=== PATIENT | male | born 1965 | race Two or more races ===

== ENCOUNTER 2020-11-10 07:55 | Emergency (ER) | payer OTHER ==
[~2020-11-10] VITALS: Ht 167.6 cm; Wt 77.1 kg
[2020-11-10 08:44] VITALS: BP 163/84
[2020-11-10] MEDS ORDERED: KETOROLAC TROMETH 30 MG/ML 1ML VIAL IV ONE (08:45)
== END 2020-11-10 09:44 | disposition home or self-care (01) ==
LOC: ER 07:55 → EDBD 07:55 → ER 09:44
DX: S42.022A Displaced fracture of shaft of left clavicle, initial encounter for closed fracture (principal); S16.1XXA Strain of muscle, fascia and tendon at neck level, initial encounter; S20.211A Contusion of right front wall of thorax, initial encounter; V43.52XA Car driver injured in collision with other type car in traffic accident, initial encounter; Y93.89 Activity, other specified; Y92.410 Unspecified street and highway as the place of occurrence of the external cause; Y99.8 Other external cause status
CPT/HCPCS: 71046; 72040; 73000; 96374; 99284; J1885